=== PATIENT | male | born 1950 | race Caucasian/White ===

== ENCOUNTER 2022-01-12 07:55 | Observation (INO) | payer MEDICARE ==
[2022-01-11] MEDS: XARELTO PO SCH (12:00)
[~2022-01-12] VITALS: Ht 177.8 cm; Wt 108.9 kg
[2022-01-12 07:58] VITALS: BP 163/81
--- NOTE | 2022-01-12 08:17 | PCM.EKG ---
[facility] Test Date: 2022-01-12 Test Time: 08:07:46 Pat Name: ISELA ORTIZ Department: [id number] Room: 329 Gender: M Patient Care Assistant: CALDERON : 1950 Requested By: TAY RUBIN Order Number: [id number] Reading MD: Tay RUBIN Measurements Intervals [place] Rate: 51 P: 48 [place]: 59 QRS: -24 QRSD: 96 T: 64 QT: 516 QTc: 476 Interpretive Statements Sinus rhythm Short [place] interval Inferior infarct, old Baseline wander in lead(s) V2 No previous ECG available for comparison Electronically Signed On 01-14-2022 7:20:49 CDT by Tay RUBIN Please click the below link to view image of tracing.
--- NOTE | 2022-01-12 08:20 | ER.PDOC ---
General Chief Complaint: Nausea,Vomiting,Diarrhea Stated Complaint: NAUSEA/VOMITING Time seen by MD: 08:18 Source: patient Exam Limitations: no limitations History of Present Illness Initial Comments Nausea, vomiting and diarrhea for 4 days. No fever or chills. No abdominal pain. Patient has not been able to keep anything down for 4 days. 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 Severity/Quality: moderate Associated Symptoms (vomiting): freq vomitng Associated Symptoms (diarrhea): watery Allergies: Coded Allergies: No Known Allergies (Unverified , 01/12/22) Vital Signs First Vital Signs Date Time Temp Pulse Resp B/P (MAP) Pulse Ox O2 Delivery O2 Flow Rate FiO2 01/12/22 07:58 97.6 52 18 163/81 (108) 100 Room Air* 0 21 Last Vital Signs Date Time Temp Pulse Resp B/P (MAP) Pulse Ox O2 Delivery O2 Flow Rate FiO2 01/12/22 07:58 97.6 52 18 100 01/12/22 07:58 163/81 (108) Room Air* 0 21 Past Medical History Medical History: arrhythmia (A fib), diabetes, high cholesterol, hypertension Surgical History: appendectomy Family History Significant Family History: no pertinent family hx Social History Smoking: non-smoker Alcohol Use: none Drug Use: none Constitutional: no symptoms reported EENTM: no symptoms reported Respiratory: no symptoms reported Cardiovascular: no symptoms reported Gastrointestinal: see HPI All Other Systems: Reviewed and Negative Physical Exam General Appearance: No Apparent Distress, WD/WN HEENT: PERRL/EOMI, Normal ENT Inspection, TMs Normal, Pharynx Normal Neck: Non-Tender, Full Range of Motion, Supple, Normal Inspection Respiratory: chest non-tender, lungs clear, normal breath sounds, no respiratory distress, no accessory muscle use Cardiovascular: Normal Peripheral Pulses, Regular Rate, Rhythm, No Edema, No Gallop, No JVD, No Murmur, Bradycardia Gastrointestinal: Normal Bowel Sounds, Non Tender, Soft Back: Normal Inspection, No CVA Tenderness, No Vertebral Tenderness Extremities: Normal Range of Motion, Non-Tender, Normal Inspection, No Pedal Edema, No Calf Tenderness, Normal Capillary Refill, Pelvis Stable 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 NML as Tested, No Motor/Sensory Deficits, Alert, Normal Mood/Affect, Oriented x 3 Skin: Normal Color, Warm/Dry Lymphatic: No Adenopathy Results/Orders Results/Orders Orders - TAY RUBIN MD Cbc With Auto Diff (01/12/22 08:13) Comprehensive Metabolic Panel (01/12/22 08:13) Lipase (01/12/22 08:13) Urinalysis (01/12/22 08:13) Ekg-Routine (01/12/22 08:13) Covid19 Antigen Sofía Latrice (01/12/22 08:18) Vital Signs Date Time Temp Pulse Resp B/P (MAP) Pulse Ox O2 Delivery O2 Flow Rate FiO2 01/12/22 07:58 97.6 52 18 100 01/12/22 07:58 97.6 52 18 01/12/22 07:58 97.6 52 18 163/81 (108) 100 Room Air* 0 21 Laboratory Tests Test 01/12/22 08:18 01/12/22 08:25 01/12/22 09:02 White Blood Count 10.1 10^3/uL (4.5-11.0) Red Blood Count 4.61 10^6/uL (4.50-5.90) Hemoglobin 14.9 g/dL (13.9-16.3) Hematocrit 46.2 % (37.0-53.0) Mean Corpuscular Volume 100.2 fL (78-100) H Mean Corpuscular Hemoglobin 32.3 pg (26-34) Mean Corpuscular Hemoglobin Concent 32.3 g/dL (33-36.5) L Red Cell Distribution Width 13.6 % (11.5-14.5) Platelet Count 242 10^3/uL (150-400) Mean Platelet Volume 9.7 fL (7.8-11.0) Neutrophils (%) (Auto) 86.0 % (41.0-85.0) H Lymphocytes (%) (Auto) 7.2 % (24.0-44.0) L Monocytes (%) (Auto) 5.4 % (5.0-12.0) Neutrophils # (Auto) 8.7 10^3/uL (1.8-7.7) H Lymphocytes # (Auto) 0.73 10^3/uL1 (1.0-4.8) L Monocytes # (Auto) 0.6 10^3/uL (0.3-0.8) Absolute Immature Granulocyte (auto 0.02 10^3 u/L (0-2) Absolute Eosinophils (auto) 0.1 10^3/uL (0.0-0.2) Immature Granulocytes % 0.20 % (0.00-0.50) Eosinophils % 0.8 % (0.0-5.0) Basophils % 0.4 % (0.0-0.2) H Basophils # 0.0 10^3/uL (0.0-0.1) Sodium Level 143 mmol/L (132-145) Potassium Level 3.9 mmol/L (3.6-5.2) Chloride Level 110.0 mmol/L (96-109) H Carbon Dioxide Level 21.7 mmol/L (20.0-32) Anion Gap 15.2 Blood Urea Nitrogen 19 mg/dL (7-18) H Creatinine 1.56 mg/dL (0.59-1.40) H Estimated GFR () 53.2 (>/=60) Est GFR (CKD-EPI)(Non-Afr Israeli) 44.0 (>/=60) BUN/Creatinine Ratio 12.0 Glucose Level 115 mg/dL (70-110) H Calcium Level 8.5 mg/dL (8.4-10.5) Total Bilirubin 0.5 mg/dL (0.2-1.0) Aspartate Amino Transferase (AST) 22 U/L (0-35) Alanine Aminotransferase (ALT) 51 U/L (12-78) Alkaline Phosphatase 71 U/L (50-136) Total Protein 6.5 g/dL (6.4-8.2) Albumin 3.9 g/dL (3.4-5.0) Globulin 2.6 Albumin/Globulin Ratio 1.500 Lipase 47 U/L (114-286) L SARS-CoV-2 Antigen (Rapid) NEGATIVE (NEGATIVE) Urine Collection Type UNKNOWN Urine Color YELLOW Urine Appearance CLEAR Urine Bilirubin NEGATIVE (NEGATIVE) Urine Ketones NEGATIVE (NEGATIVE) Urine Specific [place] 1.010 (1.005-1.030) Urine pH 5.0 (4.5-8.0) Urine Protein NEGATIVE (NEGATIVE) Urine Urobilinogen 0.2 E.U./dL (0.2) Urine Nitrate NEGATIVE (NEGATIVE) Urine Leukocyte Esterase NEGATIVE (NEGATIVE) Urine Glucose (Auto)(UA) NEGATIVE (NEGATIVE) Urine Blood NEGATIVE (NEGATIVE) Progress Progress Patient received a liter of NS. 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 EKG/XRAY/CT/US EKG: NSR EKG Comments: HR 51, normal P axis ER DEPART Departure Time of Disposition: 09:38 Disposition: 01 HOME / SELF CARE / HOMELESS Impression: Primary Impression: Gastroenteritis Additional Impressions: Acute renal failure Dehydration Condition: Improved Comments Admitted to Dr. Alexander Duration or Time Spent with Pa: 30 min Problem Qualifiers Additional Impressions: Acute renal failure Acute renal failure type: unspecified Qualified Codes: N17.9 - Acute kidney failure, unspecified TAY RUBIN MD Jan 12, 2022 08:20
[2022-01-12 08:29] LABS: BASOPHIL % 0.4 % (0.0-0.2); EOSINOPHIL # 0.1 10^3/uL (0.0-0.2); EOSINOPHIL % 0.8 % (0.0-5.0); LYMPHOCYTES # 0.73 10^3/uL1 (1.0-4.8); LYMPHOCYTES % 7.2 % (24.0-44.0); MEAN CORP HGB 32.3 pg (26-34); MONOCYTES # 0.6 10^3/uL (0.3-0.8); MONOCYTES % 5.4 % (5.0-12.0); NEUTROPHIL # 8.7 10^3/uL (1.8-7.7); RED CELL DISTRIBUTION WIDTH 13.6 % (11.5-14.5)
[2022-01-12 08:43] LABS: CARBON DIOXIDE 21.7 mmol/L (20.0-32)
[2022-01-12] MEDS: XARELTO PO SCH (09:00)
[2022-01-12 09:17] LABS: BILIRUBIN,URINE NEGATIVE (NEGATIVE); UROBILINOGEN,URINE 0.2 E.U./dL (0.2)
[2022-01-12] MEDS ORDERED: HNS 1000ML/KCL 20MEQ 1,000 ML IV STA (09:41)
[2022-01-12] MEDS ORDERED: RIVA20TA PO (09:45)
[2022-01-12] MEDS ORDERED: OMEP20CA19 PO (09:45)
[2022-01-12] MEDS ORDERED: ALLO300T PO (09:45)
[2022-01-12] MEDS ORDERED: LISI5TAB18 PO (09:45)
[2022-01-12] MEDS ORDERED: METF500T17 PO (09:45)
[2022-01-12] MEDS ORDERED: INSU100I28 SQ (09:45)
[2022-01-12] MEDS ORDERED: METO100T7 PO (09:45)
[2022-01-12] MEDS ORDERED: ATOR40TA PO (09:45)
[2022-01-12] MEDS ORDERED: HNS 1000ML/KCL 20MEQ 1,000 ML ONE (09:48)
--- NOTE | 2022-01-12 10:13 | NUR ---
REPORT CALLED REPORT TO MARILEE GLORIA. PT TAKEN VIA IN STABLE CONDITION.
[2022-01-12 11:23] VITALS: BP 153/69
[2022-01-12] MEDS ORDERED: D5W-1/2NS 1000ML 1,000 ML IV SCH (11:30)
[2022-01-12] MEDS ORDERED: ZOFRAN IV PRN (11:30)
[2022-01-12] MEDS ORDERED: TYLENOL PO PRN (11:30)
--- NOTE | 2022-01-12 11:57 | PCM.HP ---
History of Present Illness Reason for Visit: Nausea vomiting and diarrhea History of Present Illness 71-year-old male with history of diabetes mellitus, hypertension, atrial fibrillation on Xarelto Presented to emergency room with Nausea, vomiting and diarrhea for 4 days. No fever or chills. No abdominal pain. Patient has not been able to keep anything down for 4 days. 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 Work-up in the emergency room patient appears dehydrated. Abdomen is soft. Lab work showed elevated creatinine 1.56. Unknown baseline. Patient placed on IV fluids. Patient is being admitted hospital for further management. Past Medical History Cardiac: AFIB, HTN Endocrine: Diabetes Past Surgical History: No pertinent hx Past Social History Alcohol: social Review of Systems Constitutional: Weakness Gastrointestinal: Nausea, Vomiting, Diarrhea Other Review of other 14 systems negative except as mentioned above in history present illness Allergies: Coded Allergies: No Known Allergies (Unverified , 01/12/22) Scheduled Allopurinol (Allopurinol), 1 TAB PO DAILY, (Reported) Atorvastatin 40MG (Lipitor 40MG), 1 TAB PO HS, (Reported) Insulin Detemir (Levemir Flextouch), 100 UNIT SQ DAILY24, (Reported) Lisinopril (Lisinopril), 1 TAB PO BID, (Reported) Metformin Hcl (Metformin Hcl), 1 TAB PO BID, (Reported) Metoprolol Tartrate (Lopresser 100MG), 50 MG PO BID, (Reported) Omeprazole (Omeprazole), 1 CAP PO DAILY, (Reported) Rivaroxaban (Xarelto), 1 TAB PO QD, (Reported) VTE VTE Present on Admission: Yes Currently receiving anticoagul: Yes VTE Risk Total Score: 2 Exam Vital Signs Vital Signs Date Time Temp Pulse Resp B/P (MAP) Pulse Ox O2 Delivery O2 Flow Rate FiO2 01/12/22 11:23 97.9 50 18 153/69 (97) 98 Room Air* 0 21 General Appearance: Alert, Oriented X3, mild distress HEENT: Atraumatic, Other (Dry mucous membrane) Respiratory: Clear to auscultation, Normal air movement Cardiovascular: Regular rate, Normal S1, Normal S2 Abdominal: Normal bowel sounds, No tenderness Extremities: No clubbing, No cyanosis Skin: No lesions Neuro: Normal speech, Normal tone Psych/Mental Status: Mental status NL, Mood NL Assessment/Plan Assessment/Plan Assessment/Plan 71-year-old male with history of diabetes mellitus, hypertension, atrial fibrill ation on Xarelto Presented to emergency room with Nausea, vomiting and diarrhea for 4 days. No fever or chills. No abdominal pain. Patient has not been able to keep anything down for 4 days. 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 Work-up in the emergency room patient appears dehydrated. Abdomen is soft. Lab work showed elevated creatinine 1.56. Unknown baseline. Patient placed on IV fluids. Patient is being admitted hospital for further management. Plan Admit IV fluids Monitor kidney function urine output Monitor and correct electrolytes Symptomatic management Review and continue home meds SSI GI prophylaxis pantoprazole DVT prophylaxis Continue home anticoagulant Expect length of stay 1 midnight patient stable and able to tolerate p.o. Problems: (1) Acute kidney injury ICD Code: N17.9 - Acute kidney failure, unspecified SNOMED: 0222296, 16939390 (2) Gastroenteritis Status: Acute ICD Code: K52.9 - Noninfective gastroenteritis and colitis, unspecified SNOMED: 65532669 (3) Diabetes mellitus ICD Code: E11.9 - Type 2 diabetes mellitus without complications SNOMED: 42720897 (4) History of atrial fibrillation ICD Code: Z86.79 - Personal history of other diseases of the circulatory system SNOMED: 113669474 (5) Dehydration Status: Acute ICD Code: E86.0 - Dehydration SNOMED: 24770504 GEOVANNI PFEIFFER MD Jan 12, 2022 11:57
[2022-01-12] MEDS ORDERED: DEXTROSE 50%-WATER SYRINGE IV PRN (12:00)
[2022-01-12] MEDS ORDERED: D5W 1000ML 1,000 ML IV PRN (12:00)
[2022-01-12 16:20] VITALS: BP 156/74
[2022-01-12] MEDS: HUMALOG SQ SCH ×2 (17:30→21:00)
[2022-01-12] MEDS: LACTATED RINGERS 1,000 ML IV SCH ×2 (18:28→22:00)
[2022-01-12 19:40] VITALS: BP 140/66
[2022-01-12] MEDS: LANTUS SQ SCH (21:15)
[2022-01-12] MEDS: LOPRESSOR PO SCH (21:16)
[2022-01-12] MEDS: LIPITOR PO SCH (21:16)
[2022-01-13 00:41] VITALS: BP 144/75
[2022-01-13 04:55] VITALS: BP 148/68
[2022-01-13 05:43] LABS: BASOPHIL % 0.7 % (0.0-0.2); EOSINOPHIL # 0.1 10^3/uL (0.0-0.2); EOSINOPHIL % 2.4 % (0.0-5.0); LYMPHOCYTES # 1.55 10^3/uL1 (1.0-4.8); LYMPHOCYTES % 26.8 % (24.0-44.0); MEAN CORP HGB 33.1 pg (26-34); MONOCYTES # 0.6 10^3/uL (0.3-0.8); MONOCYTES % 10.5 % (5.0-12.0); NEUTROPHIL # 3.4 10^3/uL (1.8-7.7); NEUTROPHILS % 59.4 % (41.0-85.0); PLATELET COUNT 203 10^3/uL (150-400); RED CELL DISTRIBUTION WIDTH 13.6 % (11.5-14.5)
[2022-01-13 05:57] LABS: CARBON DIOXIDE 23.1 mmol/L (20.0-32)
[2022-01-13] MEDS: HUMALOG SQ SCH ×4 (07:30→21:14)
[2022-01-13 08:00] VITALS: BP 156/82
[2022-01-13] MEDS: LACTATED RINGERS 1,000 ML IV SCH ×2 (08:00→15:16)
[2022-01-13] MEDS: LOPRESSOR PO SCH ×3 (09:00→21:00)
[2022-01-13] MEDS: ZYLOPRIM PO SCH (09:48)
[2022-01-13] MEDS: PROTONIX PO SCH (09:49)
[2022-01-13] MEDS: XARELTO PO SCH (09:49)
[2022-01-13 12:00] VITALS: BP 160/74
--- NOTE | 2022-01-13 12:42 | PRM.PN ---
Subjective Subjective Date: Jan 13, 2022 Time: 10:00 Subjective Doing better. His diarrhea has improved but still leaks stools and 2 stool stains seen on the bed. No vomiting, has slight nausea. Afebrile. Hungry for food. Creatinine has improved to 1.21 from 1.56.. K is 3.4. 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 Events Since Last Encounter as above. Improving on IVF. Requests to advance diet. VTE VTE Risk assessment No VTE C/I VTE Risk Total Score: 2 VTE Risk Score VTE Risk: Score 0-1 = Low Risk (Aggressive mobilization; early ambulation; no VTE prophylaxis required) Score 2: Moderate Risk (Intermittent/Pneumatic Compression Device OR Lovenox/Heparin/Coumadin) Score 3-4: High Risk (Intermittent/Pneumatic Compression Device AND Lovenox/Heparin/Coumadin) Score > or =5: Highest Risk (Intermittent/Pneumatic Compression Device AND Lovenox/Heparin/Coumadin) Review of Systems Constitutional: Weakness Gastrointestinal: Nausea, Vomiting, Abdominal Pain, Diarrhea, Constipation, Melena, Hematochezia, Other Allergies: Coded Allergies: No Known Allergies (Unverified , 01/12/22) Scheduled Allopurinol (Allopurinol), 1 TAB PO DAILY, (Reported) Atorvastatin 40MG (Lipitor 40MG), 1 TAB PO HS, (Reported) Insulin Detemir (Levemir Flextouch), 100 UNIT SQ DAILY24, (Reported) Lisinopril (Lisinopril), 1 TAB PO BID, (Reported) Metformin Hcl (Metformin Hcl), 1 TAB PO BID, (Reported) Metoprolol Tartrate (Lopresser 100MG), 50 MG PO BID, (Reported) Omeprazole (Omeprazole), 1 CAP PO DAILY, (Reported) Rivaroxaban (Xarelto), 1 TAB PO QD, (Reported) Objective Vitals and I/O Vital Sign - Last 24 Hours 01/12/22 01/12/22 01/12/22 01/12/22 16:20 16:22 16:55 19:40 Temp 98.2 97.6 Pulse 48 49 Resp 17 18 B/P (MAP) 156/74 (101) 140/66 (90) Pulse Ox 99 99 O2 Delivery Room Air* Room Air Room Air Room Air* O2 Flow Rate 0 0 FiO2 21 01/12/22 01/13/22 01/13/22 01/13/22 19:46 00:41 04:55 08:00 Temp 98.1 97.9 97.7 Pulse 50 50 50 Resp 18 16 16 B/P (MAP) 144/75 (98) 148/68 (94) 156/82 (106) Pulse Ox 97 96 98 O2 Delivery Room Air Room Air* Room Air* Room Air* O2 Flow Rate 0.00 0 0 0 FiO2 21 01/13/22 01/13/22 11:33 12:00 Temp 98.1 Pulse 51 Resp 16 B/P (MAP) 160/74 (102) Pulse Ox 98 O2 Delivery Room Air Room Air* O2 Flow Rate 0.00 0 FiO2 21 General: Alert, Oriented X3, mild distress HEENT: Atraumatic, Other (Dry mucous membrane) Lungs: Clear to auscultation, Normal air movement Heart: Regular rate, Normal S1, Normal S2 Abdomen: Normal bowel sounds, No tenderness Extremities: No clubbing, No cyanosis Neuro: Normal speech, Normal tone Psych/Mental Status: Mental status NL, Mood NL All Results(Lab/Rad) Laboratory Tests Test 01/12/22 20:58 01/13/22 05:15 Bedside Glucose 127 White Blood Count 5.8 10^3/uL Red Blood Count 4.02 10^6/uL Hemoglobin 13.3 g/dL Hematocrit 40.1 % Mean Corpuscular Volume 99.8 fL Mean Corpuscular Hemoglobin 33.1 pg Mean Corpuscular Hemoglobin Concent 33.2 g/dL Red Cell Distribution Width 13.6 % Platelet Count 203 10^3/uL Mean Platelet Volume 10.0 fL Neutrophils (%) (Auto) 59.4 % Lymphocytes (%) (Auto) 26.8 % Monocytes (%) (Auto) 10.5 % Neutrophils # (Auto) 3.4 10^3/uL Lymphocytes # (Auto) 1.55 10^3/uL1 Monocytes # (Auto) 0.6 10^3/uL Absolute Immature Granulocyte (auto 0.01 10^3 u/L Absolute Eosinophils (auto) 0.1 10^3/uL Immature Granulocytes % 0.20 % Eosinophils % 2.4 % Basophils % 0.7 % Basophils # 0.0 10^3/uL Sodium Level 144 mmol/L Potassium Level 3.4 mmol/L Chloride Level 111.0 mmol/L Carbon Dioxide Level 23.1 mmol/L Glucose Level 96 mg/dL Blood Urea Nitrogen 11 mg/dL Creatinine 1.21 mg/dL Calcium Level 8.4 mg/dL Anion Gap 13.3 Estimated GFR () 71.3 Est GFR (CKD-EPI)(Non-Afr Syrian) 58.9 BUN/Creatinine Ratio 9.0 Current Medications Medications (Trade) Dose Ordered Sig/Timothy Route PRN Reason Start Time Stop Time Status Last Admin Dose Admin Potassium Chloride/Sodium Chloride 1,000 ml @ 100 mls/hr Q10H STAT IV 01/12/22 09:41 01/12/22 19:40 DC 01/12/22 09:55 Potassium Chloride/Sodium Chloride 1,000 ml @ ud STK-MED ONCE .ROUTE 01/12/22 09:48 01/12/22 09:48 DC Acetaminophen (Tylenol) 1,000 mg Q6H PRN PO PAIN 1 - 3 01/12/22 11:30 02/11/22 11:29 Pantoprazole Sodium (Protonix) 40 mg DAILY PO 01/13/22 09:00 02/12/22 08:59 01/13/22 09:49 Ondansetron HCl (Zofran) 4 mg Q4H PRN IV NAUSEA / VOMITING 01/12/22 11:30 02/11/22 11:29 Allopurinol (Zyloprim) 300 mg DAILY PO 01/13/22 09:00 02/12/22 08:59 01/13/22 09:48 Atorvastatin Calcium (Lipitor) 40 mg HS PO 01/12/22 21:00 02/11/22 20:59 01/12/22 21:16 Metoprolol Tartrate (Lopressor) 50 mg BID PO 01/12/22 21:00 02/11/22 20:59 01/12/22 21:16 Rivaroxaban (Xarelto) 20 mg DAILY PO 01/11/22 12:00 02/10/22 11:59 01/13/22 09:49 Insulin Glargine (Lantus) 10 unit HS SQ 01/12/22 21:00 02/11/22 20:59 01/12/22 21:15 Insulin Human Lispro (Humalog) 0-140 0 Units 141-200... ACHS SQ 01/12/22 17:30 02/11/22 17:29 Dextrose 1,000 ml @ 100 mls/hr Q10H PRN IV HYPOGLYCEMIA 01/12/22 12:00 02/11/22 11:59 Dextrose (Dextrose 50%-Water Syringe) 25 ml PRN PRN IV HYPOGLYCEMIA 01/12/22 12:00 02/11/22 11:59 Course Sepsis Screening Results: Posi: NEGATIVE Sepsis Qualifier/Stage: NO DEFINITE RISK Duration or Total Time Spent w: 30 min Vitals & review Data Vital Sign - Last 24 Hours 01/12/22 01/12/22 01/12/22 01/12/22 16:20 16:22 16:55 19:40 Temp 98.2 97.6 Pulse 48 49 Resp 17 18 B/P (MAP) 156/74 (101) 140/66 (90) Pulse Ox 99 99 O2 Delivery Room Air* Room Air Room Air Room Air* O2 Flow Rate 0 0 FiO2 21 01/12/22 01/13/22 01/13/22 01/13/22 19:46 00:41 04:55 08:00 Temp 98.1 97.9 97.7 Pulse 50 50 50 Resp 18 16 16 B/P (MAP) 144/75 (98) 148/68 (94) 156/82 (106) Pulse Ox 97 96 98 O2 Delivery Room Air Room Air* Room Air* Room Air* O2 Flow Rate 0.00 0 0 0 FiO2 21 01/13/22 01/13/22 11:33 12:00 Temp 98.1 Pulse 51 Resp 16 B/P (MAP) 160/74 (102) Pulse Ox 98 O2 Delivery Room Air Room Air* O2 Flow Rate 0.00 0 FiO2 21 Laboratory Tests Test 01/12/22 08:18 01/12/22 08:25 01/12/22 09:02 01/12/22 12:06 White Blood Count 10.1 10^3/uL Red Blood Count 4.61 10^6/uL Hemoglobin 14.9 g/dL Hematocrit 46.2 % Mean Corpuscular Volume 100.2 fL Mean Corpuscular Hemoglobin 32.3 pg Mean Corpuscular Hemoglobin Concent 32.3 g/dL Red Cell Distribution Width 13.6 % Platelet Count 242 10^3/uL Mean Platelet Volume 9.7 fL Neutrophils (%) (Auto) 86.0 % Lymphocytes (%) (Auto) 7.2 % Monocytes (%) (Auto) 5.4 % Neutrophils # (Auto) 8.7 10^3/uL Lymphocytes # (Auto) 0.73 10^3/uL1 Monocytes # (Auto) 0.6 10^3/uL Absolute Immature Granulocyte (auto 0.02 10^3 u/L Absolute Eosinophils (auto) 0.1 10^3/uL Immature Granulocytes % 0.20 % Eosinophils % 0.8 % Basophils % 0.4 % Basophils # 0.0 10^3/uL Sodium Level 143 mmol/L Potassium Level 3.9 mmol/L Chloride Level 110.0 mmol/L Carbon Dioxide Level 21.7 mmol/L Anion Gap 15.2 Blood Urea Nitrogen 19 mg/dL Creatinine 1.56 mg/dL Estimated GFR () 53.2 Est GFR (CKD-EPI)(Non-Afr Syrian) 44.0 BUN/Creatinine Ratio 12.0 Glucose Level 115 mg/dL Calcium Level 8.5 mg/dL Total Bilirubin 0.5 mg/dL Aspartate Amino Transf (AST/SGOT) 22 U/L Alanine Aminotransferase (ALT/SGPT) 51 U/L Alkaline Phosphatase 71 U/L Total Protein 6.5 g/dL Albumin 3.9 g/dL Globulin 2.6 Albumin/Globulin Ratio 1.500 Lipase 47 U/L SARS-CoV-2 Antigen (Rapid) NEGATIVE Urine Collection Type UNKNOWN Urine Color YELLOW Urine Appearance CLEAR Urine Bilirubin NEGATIVE Urine Ketones NEGATIVE Urine Specific [place] 1.010 Urine pH 5.0 Urine Protein NEGATIVE Urine Urobilinogen 0.2 E.U./dL Urine Nitrate NEGATIVE Urine Leukocyte Esterase NEGATIVE Urine Glucose (Auto)(UA) NEGATIVE Urine Blood NEGATIVE Bedside Glucose 73 Test 01/12/22 20:58 01/13/22 05:15 Bedside Glucose 127 White Blood Count 5.8 10^3/uL Red Blood Count 4.02 10^6/uL Hemoglobin 13.3 g/dL Hematocrit 40.1 % Mean Corpuscular Volume 99.8 fL Mean Corpuscular Hemoglobin 33.1 pg Mean Corpuscular Hemoglobin Concent 33.2 g/dL Red Cell Distribution Width 13.6 % Platelet Count 203 10^3/uL Mean Platelet Volume 10.0 fL Neutrophils (%) (Auto) 59.4 % Lymphocytes (%) (Auto) 26.8 % Monocytes (%) (Auto) 10.5 % Neutrophils # (Auto) 3.4 10^3/uL Lymphocytes # (Auto) 1.55 10^3/uL1 Monocytes # (Auto) 0.6 10^3/uL Absolute Immature Granulocyte (auto 0.01 10^3 u/L Absolute Eosinophils (auto) 0.1 10^3/uL Immature Granulocytes % 0.20 % Eosinophils % 2.4 % Basophils % 0.7 % Basophils # 0.0 10^3/uL Sodium Level 144 mmol/L Potassium Level 3.4 mmol/L Chloride Level 111.0 mmol/L Carbon Dioxide Level 23.1 mmol/L Glucose Level 96 mg/dL Blood Urea Nitrogen 11 mg/dL Creatinine 1.21 mg/dL Calcium Level 8.4 mg/dL Anion Gap 13.3 Estimated GFR () 71.3 Est GFR (CKD-EPI)(Non-Afr Syrian) 58.9 BUN/Creatinine Ratio 9.0 Current Medications Medications (Trade) Dose Ordered Sig/Timothy PRN Reason Start Time Stop Time Status Last Admin Acetaminophen (Tylenol) 1,000 mg Q6H PRN PAIN 1 - 3 01/12/22 11:30 02/11/22 11:29 Allopurinol (Zyloprim) 300 mg DAILY 01/13/22 09:00 02/12/22 08:59 01/13/22 09:48 Atorvastatin Calcium (Lipitor) 40 mg HS 01/12/22 21:00 02/11/22 20:59 01/12/22 21:16 Dextrose 1,000 ml @ 100 mls/hr Q10H PRN HYPOGLYCEMIA 01/12/22 12:00 02/11/22 11:59 Dextrose (Dextrose 50%-Water Syringe) 25 ml PRN PRN HYPOGLYCEMIA 01/12/22 12:00 02/11/22 11:59 Insulin Glargine (Lantus) 10 unit HS 01/12/22 21:00 02/11/22 20:59 01/12/22 21:15 Insulin Human Lispro (Humalog) 0-140 0 Units 141-200... ACHS 01/12/22 17:30 02/11/22 17:29 Metoprolol Tartrate (Lopressor) 50 mg BID 01/12/22 21:00 02/11/22 20:59 01/12/22 21:16 Ondansetron HCl (Zofran) 4 mg Q4H PRN NAUSEA / VOMITING 01/12/22 11:30 02/11/22 11:29 Pantoprazole Sodium (Protonix) 40 mg DAILY 01/13/22 09:00 02/12/22 08:59 01/13/22 09:49 Rivaroxaban (Xarelto) 20 mg DAILY 01/11/22 12:00 02/10/22 11:59 01/13/22 09:49 LEVEL 1 SEPSIS INFECTION CRITE: None/Not assessed LEVEL 2-SIRS (LIST ALL THAT AP: None/Not assessed Cardiovascular Evidence: Not Assessed or None Hematologic Evidence: None/Not assessed Hepatic Evidence: None/Not assessed Metabolic Evidence: None/Not assessed Neurological Evidence: None/Not assessed Respiratory Evidence: None/Not assessed Renal Evidence: None/Not assessed O2 Sat by Pulse Oximetry: 98 Oxygen Flow Rate: 0.00 Assessment/Plan Assessment/Plan Assessment/Plan 71-year-old male with history of diabetes mellitus, hypertension, atrial fibrillation on Xarelto Presented to emergency room with Nausea, vomiting and diarrhea for 4 days. No fever or chills. No abdominal pain. Patient has not been able to keep anything down for 4 days. 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 Abdomen is soft. Lab work showed elevated creatinine 1.56. Unknown baseline. Patient placed on IV fluids. Patient is being admitted hospital for further management. Plan Advance diet and continue IVF. Monitor kidney function and urine output Monitor and correct electrolytes Symptomatic management Review and continue home meds SSI GI prophylaxis pantoprazole DVT prophylaxis Continue home anticoagulant Expect length of stay 1 midnight patient stable and able to tolerate p.o. ARUNA GARSIA MD Jan 13, 2022 12:42
[2022-01-13 16:00] VITALS: BP 179/81
[2022-01-13 20:55] VITALS: BP 154/76
[2022-01-13] MEDS: LIPITOR PO SCH (21:00)
[2022-01-13] MEDS: LANTUS SQ SCH (21:11)
[2022-01-14] VITALS: BP 124/69
[2022-01-14] MEDS: LACTATED RINGERS 1,000 ML IV SCH ×2 (03:55→12:03)
[2022-01-14 05:15] LABS: MEAN CORP HGB 32.7 pg (26-34); RED CELL DISTRIBUTION WIDTH 13.6 % (11.5-14.5)
[2022-01-14 05:18] VITALS: BP 143/93
[2022-01-14 05:36] LABS: CARBON DIOXIDE 27.9 mmol/L (20.0-32)
[2022-01-14] MEDS: HUMALOG SQ SCH ×2 (06:35→11:30)
[2022-01-14] MEDS: PROTONIX PO SCH (08:23)
[2022-01-14] MEDS: ZYLOPRIM PO SCH (08:23)
[2022-01-14] MEDS: LOPRESSOR PO SCH (08:24)
[2022-01-14] MEDS: XARELTO PO SCH (08:24)
--- NOTE | 2022-01-14 09:51 | NUR ---
DISCHARGE PLAN - F/U APPT CATHERINE MOTA IN [facility] - 01/24/22@1120 [email or web address] AND VISITED WITH PATIENT ABOUT DISCHARGE PLANS AND NEEDS. PATIENT CURRENTLY [email or web address] WITH [facility]OUSE IN [place]. 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 PATIENT REPORTS THE COMPANY CAME AND GOT HIS LOAD AND HIS TRUCK IS ON [address]@THE REST STOP - ABOUT 30-45 MINUTES PER EMS. PATIENT VOICES UNSURE OF HOW TO GET BACK TO HIS TRUCK. CM INFORMED PATIENT THAT CM WOULD CHECK TO SEE IF [facility] VAN COULD TAKE PATIENT AND CM WOULD MAKE PATIENT A F/U APPT WITH HIS PCP AND IT WOULD BE IN PATIENTS DISCHARGE PAPERWORK. PATIENT SIGNS [facility] CHOICE LETTER FOR CHART OF THE SAME. CM SPOKE WITH JOHN AND PER [employer] REST STOP OFF OF [address] 37 MILES AND APPROVED FOR VAN TRANSPORT. CM NOTIFIED JUANI SIMON RN CHARGE NURSE OF F/U APPT AND VAN TRANSPORTATION APPROVED AND FOR MED SURG TO SET UP VAN TRANSPORT WHEN PATIENT DISCHARGED. Addendum: 01/15/22 at 1049 by Bonnie Lea RN,[employer] RN CM FAXED PATIENT'S CLINICALS TO DR CATHERINE MOTA@[phone]. PATIENT WITH F/U APPT 01/24/22@1120AM. FAX CONFIRMATION CONFIRMED COMPLETE.
[2022-01-14 10:03] VITALS: BP 146/92
[2022-01-14] MEDS ORDERED: POTA-148 PO (13:12)
[2022-01-14 13:20] VITALS: BP 143/93
--- NOTE | 2022-01-14 13:22 | PRM.DC ---
Discharge Summary Date of Discharge: Jan 14, 2022 Time of Request to Discharge: 13:14 Reason for Visit: Nausea vomiting and diarrhea Hospital Course Reason for Visit: Nausea vomiting and diarrhea History of Present Illness 71-year-old male with history of diabetes mellitus, hypertension, atrial fibrillation on Xarelto Presented to emergency room with Nausea, vomiting and diarrhea for 4 days. No fever or chills. No abdominal pain. Patient has not been able to keep anything down for 4 days. 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 Work-up in the emergency room patient appears dehydrated. Abdomen is soft. Lab work showed elevated creatinine 1.56. Unknown baseline. Patient placed on IV fluids. Patient is being admitted hospital for further management. Hospital course: This 21-year-old male was admitted with nausea vomiting and diarrhea. He was managed with IV fluid. Today he is feeling better and he states that his diarrhea has almost resolved. He denies any nausea or vomiting. Yesterday he was hungry for food and diet was progressed to his regular diet. He tolerated the diet well. Potassium was 3.4 today so prescription given for potassium chloride 20 mEq daily for 5 days. Follow-up with family physician in 5 to 10 days. CMP 5 days. Insulin detemir will be held for now. Hold metformin for now. Continue fingerstick glucose before meals and at bedtime. He should use sliding scale of short acting insulin. General: Alert, Oriented X3, Cooperative HEENT: PERRLA, EOMI Neck: Supple, No JVD Lungs: Clear to auscultation Heart: Normal S1, Normal S2 Abdomen: Normal bowel sounds, Soft Extremities: No cyanosis, No edema Neuro: Normal gait, Normal speech, Strength at 5/5 X4 ext Psych/Mental Status: Mental status NL Scheduled Allopurinol (Allopurinol), 1 TAB PO DAILY, (Reported) Atorvastatin 40MG (Lipitor 40MG), 1 TAB PO HS, (Reported) Lisinopril (Lisinopril), 1 TAB PO BID, (Reported) Metoprolol Tartrate (Lopresser 100MG), 50 MG PO BID, (Reported) Omeprazole (Omeprazole), 1 CAP PO DAILY, (Reported) Potassium Chloride (Potassium Chloride), 20 MEQ PO DAILY24 Rivaroxaban (Xarelto), 1 TAB PO QD, (Reported) Discontinued Medications Insulin Detemir (Levemir Flextouch), 100 UNIT SQ DAILY24, (Reported) Discontinued Reason: HOLD Metformin Hcl (Metformin Hcl), 1 TAB PO BID, (Reported) Discontinued Reason: HOLD Sepsis Evaluation @ Discharge Vital Sign - Last 24 Hours 01/12/22 01/12/22 01/12/22 01/12/22 16:20 16:22 16:55 19:40 Temp 98.2 97.6 Pulse 48 49 Resp 17 18 B/P (MAP) 156/74 (101) 140/66 (90) Pulse Ox 99 99 O2 Delivery Room Air* Room Air Room Air Room Air* O2 Flow Rate 0 0 FiO2 01/12/22 01/13/22 01/13/22 01/13/22 19:46 00:41 04:55 08:00 Temp 98.1 97.9 97.7 Pulse 50 50 50 Resp 18 16 16 B/P (MAP) 144/75 (98) 148/68 (94) 156/82 (106) Pulse Ox 97 96 98 O2 Delivery Room Air Room Air* Room Air* Room Air* O2 Flow Rate 0.00 0 0 0 FiO2 01/13/22 01/13/22 11:33 12:00 Temp 98.1 Pulse 51 Resp 16 B/P (MAP) 160/74 (102) Pulse Ox 98 O2 Delivery Room Air Room Air* O2 Flow Rate 0.00 0 FiO2 21 Laboratory Tests Test 01/12/22 08:18 01/12/22 08:25 01/12/22 09:02 01/12/22 12:06 White Blood Count 10.1 10^3/uL Red Blood Count 4.61 10^6/uL Hemoglobin 14.9 g/dL Hematocrit 46.2 % Mean Corpuscular Volume 100.2 fL Mean Corpuscular Hemoglobin 32.3 pg Mean Corpuscular Hemoglobin Concent 32.3 g/dL Red Cell Distribution Width 13.6 % Platelet Count 242 10^3/uL Mean Platelet Volume 9.7 fL Neutrophils (%) (Auto) 86.0 % Lymphocytes (%) (Auto) 7.2 % Monocytes (%) (Auto) 5.4 % Neutrophils # (Auto) 8.7 10^3/uL Lymphocytes # (Auto) 0.73 10^3/uL1 Monocytes # (Auto) 0.6 10^3/uL Absolute Immature Granulocyte (auto 0.02 10^3 u/L Absolute Eosinophils (auto) 0.1 10^3/uL Immature Granulocytes % 0.20 % Eosinophils % 0.8 % Basophils % 0.4 % Basophils # 0.0 10^3/uL Sodium Level 143 mmol/L Potassium Level 3.9 mmol/L Chloride Level 110.0 mmol/L Carbon Dioxide Level 21.7 mmol/L Anion Gap 15.2 Blood Urea Nitrogen 19 mg/dL Creatinine 1.56 mg/dL Estimated GFR () 53.2 Est GFR (CKD-EPI)(Non-Afr [place]) 44.0 BUN/Creatinine Ratio 12.0 Glucose Level 115 mg/dL Calcium Level 8.5 mg/dL Total Bilirubin 0.5 mg/dL Aspartate Amino Transf (AST/SGOT) 22 U/L Alanine Aminotransferase (ALT/SGPT) 51 U/L Alkaline Phosphatase 71 U/L Total Protein 6.5 g/dL Albumin 3.9 g/dL Globulin 2.6 Albumin/Globulin Ratio 1.500 Lipase 47 U/L SARS-CoV-2 Antigen (Rapid) NEGATIVE Urine Collection Type UNKNOWN Urine Color YELLOW Urine Appearance CLEAR Urine Bilirubin NEGATIVE Urine Ketones NEGATIVE Urine Specific [place] 1.010 Urine pH 5.0 Urine Protein NEGATIVE Urine Urobilinogen 0.2 E.U./dL Urine Nitrate NEGATIVE Urine Leukocyte Esterase NEGATIVE Urine Glucose (Auto)(UA) NEGATIVE Urine Blood NEGATIVE Bedside Glucose 73 Test 01/12/22 20:58 01/13/22 05:15 Bedside Glucose 127 White Blood Count 5.8 10^3/uL Red Blood Count 4.02 10^6/uL Hemoglobin 13.3 g/dL Hematocrit 40.1 % Mean Corpuscular Volume 99.8 fL Mean Corpuscular Hemoglobin 33.1 pg Mean Corpuscular Hemoglobin Concent 33.2 g/dL Red Cell Distribution Width 13.6 % Platelet Count 203 10^3/uL Mean Platelet Volume 10.0 fL Neutrophils (%) (Auto) 59.4 % Lymphocytes (%) (Auto) 26.8 % Monocytes (%) (Auto) 10.5 % Neutrophils # (Auto) 3.4 10^3/uL Lymphocytes # (Auto) 1.55 10^3/uL1 Monocytes # (Auto) 0.6 10^3/uL Absolute Immature Granulocyte (auto 0.01 10^3 u/L Absolute Eosinophils (auto) 0.1 10^3/uL Immature Granulocytes % 0.20 % Eosinophils % 2.4 % Basophils % 0.7 % Basophils # 0.0 10^3/uL Sodium Level 144 mmol/L Potassium Level 3.4 mmol/L Chloride Level 111.0 mmol/L Carbon Dioxide Level 23.1 mmol/L Glucose Level 96 mg/dL Blood Urea Nitrogen 11 mg/dL Creatinine 1.21 mg/dL Calcium Level 8.4 mg/dL Anion Gap 13.3 Estimated GFR () 71.3 Est GFR (CKD-EPI)(Non-Afr [place]) 58.9 BUN/Creatinine Ratio 9.0 Current Medications Medications (Trade) Dose Ordered Sig/Timothy PRN Reason Start Time Stop Time Status Last Admin Acetaminophen (Tylenol) 1,000 mg Q6H PRN PAIN 1 - 3 01/12/22 11:30 02/11/22 11:29 Allopurinol (Zyloprim) 300 mg DAILY 01/13/22 09:00 02/12/22 08:59 01/13/22 09:48 Atorvastatin Calcium (Lipitor) 40 mg HS 01/12/22 21:00 02/11/22 20:59 01/12/22 21:16 Dextrose 1,000 ml @ 100 mls/hr Q10H PRN HYPOGLYCEMIA 01/12/22 12:00 02/11/22 11:59 Dextrose (Dextrose 50%-Water Syringe) 25 ml PRN PRN HYPOGLYCEMIA 01/12/22 12:00 02/11/22 11:59 Insulin Glargine (Lantus) 10 unit HS 01/12/22 21:00 02/11/22 20:59 01/12/22 21:15 Insulin Human Lispro (Humalog) 0-140 0 Units 141-200... ACHS 01/12/22 17:30 02/11/22 17:29 Metoprolol Tartrate (Lopressor) 50 mg BID 01/12/22 21:00 02/11/22 20:59 01/12/22 21:16 Ondansetron HCl (Zofran) 4 mg Q4H PRN NAUSEA / VOMITING 01/12/22 11:30 02/11/22 11:29 Pantoprazole Sodium (Protonix) 40 mg DAILY 01/13/22 09:00 02/12/22 08:59 01/13/22 09:49 Rivaroxaban (Xarelto) 20 mg DAILY 01/11/22 12:00 02/10/22 11:59 01/13/22 09:49 Course Sepsis Screening Results: Posi: NEGATIVE Sepsis Qualifier/Stage: NO DEFINITE RISK Duration or Total Time Spent w: 30 min Vitals & review Data Vital Sign - Last 24 Hours 01/12/22 01/12/22 01/12/22 01/12/22 16:20 16:22 16:55 19:40 Temp 98.2 97.6 Pulse 48 49 Resp 17 18 B/P (MAP) 156/74 (101) 140/66 (90) Pulse Ox 99 99 O2 Delivery Room Air* Room Air Room Air Room Air* O2 Flow Rate 0 0 FiO2 01/12/22 01/13/22 01/13/22 01/13/22 19:46 00:41 04:55 08:00 Temp 98.1 97.9 97.7 Pulse 50 50 50 Resp 18 16 16 B/P (MAP) 144/75 (98) 148/68 (94) 156/82 (106) Pulse Ox 97 96 98 O2 Delivery Room Air Room Air* Room Air* Room Air* O2 Flow Rate 0.00 0 0 0 FiO2 01/13/22 01/13/22 11:33 12:00 Temp 98.1 Pulse 51 Resp 16 B/P (MAP) 160/74 (102) Pulse Ox 98 O2 Delivery Room Air Room Air* O2 Flow Rate 0.00 0 FiO2 21 Laboratory Tests Test 01/12/22 08:18 01/12/22 08:25 01/12/22 09:02 01/12/22 12:06 White Blood Count 10.1 10^3/uL Red Blood Count 4.61 10^6/uL Hemoglobin 14.9 g/dL Hematocrit 46.2 % Mean Corpuscular Volume 100.2 fL Mean Corpuscular Hemoglobin 32.3 pg Mean Corpuscular Hemoglobin Concent 32.3 g/dL Red Cell Distribution Width 13.6 % Platelet Count 242 10^3/uL Mean Platelet Volume 9.7 fL Neutrophils (%) (Auto) 86.0 % Lymphocytes (%) (Auto) 7.2 % Monocytes (%) (Auto) 5.4 % Neutrophils # (Auto) 8.7 10^3/uL Lymphocytes # (Auto) 0.73 10^3/uL1 Monocytes # (Auto) 0.6 10^3/uL Absolute Immature Granulocyte (auto 0.02 10^3 u/L Absolute Eosinophils (auto) 0.1 10^3/uL Immature Granulocytes % 0.20 % Eosinophils % 0.8 % Basophils % 0.4 % Basophils # 0.0 10^3/uL Sodium Level 143 mmol/L Potassium Level 3.9 mmol/L Chloride Level 110.0 mmol/L Carbon Dioxide Level 21.7 mmol/L Anion Gap 15.2 Blood Urea Nitrogen 19 mg/dL Creatinine 1.56 mg/dL Estimated GFR () 53.2 Est GFR (CKD-EPI)(Non-Afr [place]) 44.0 BUN/Creatinine Ratio 12.0 Glucose Level 115 mg/dL Calcium Level 8.5 mg/dL Total Bilirubin 0.5 mg/dL Aspartate Amino Transf (AST/SGOT) 22 U/L Alanine Aminotransferase (ALT/SGPT) 51 U/L Alkaline Phosphatase 71 U/L Total Protein 6.5 g/dL Albumin 3.9 g/dL Globulin 2.6 Albumin/Globulin Ratio 1.500 Lipase 47 U/L SARS-CoV-2 Antigen (Rapid) NEGATIVE Urine Collection Type UNKNOWN Urine Color YELLOW Urine Appearance CLEAR Urine Bilirubin NEGATIVE Urine Ketones NEGATIVE Urine Specific [place] 1.010 Urine pH 5.0 Urine Protein NEGATIVE Urine Urobilinogen 0.2 E.U./dL Urine Nitrate NEGATIVE Urine Leukocyte Esterase NEGATIVE Urine Glucose (Auto)(UA) NEGATIVE Urine Blood NEGATIVE Bedside Glucose 73 Test 01/12/22 20:58 01/13/22 05:15 Bedside Glucose 127 White Blood Count 5.8 10^3/uL Red Blood Count 4.02 10^6/uL Hemoglobin 13.3 g/dL Hematocrit 40.1 % Mean Corpuscular Volume 99.8 fL Mean Corpuscular Hemoglobin 33.1 pg Mean Corpuscular Hemoglobin Concent 33.2 g/dL Red Cell Distribution Width 13.6 % Platelet Count 203 10^3/uL Mean Platelet Volume 10.0 fL Neutrophils (%) (Auto) 59.4 % Lymphocytes (%) (Auto) 26.8 % Monocytes (%) (Auto) 10.5 % Neutrophils # (Auto) 3.4 10^3/uL Lymphocytes # (Auto) 1.55 10^3/uL1 Monocytes # (Auto) 0.6 10^3/uL Absolute Immature Granulocyte (auto 0.01 10^3 u/L Absolute Eosinophils (auto) 0.1 10^3/uL Immature Granulocytes % 0.20 % Eosinophils % 2.4 % Basophils % 0.7 % Basophils # 0.0 10^3/uL Sodium Level 144 mmol/L Potassium Level 3.4 mmol/L Chloride Level 111.0 mmol/L Carbon Dioxide Level 23.1 mmol/L Glucose Level 96 mg/dL Blood Urea Nitrogen 11 mg/dL Creatinine 1.21 mg/dL Calcium Level 8.4 mg/dL Anion Gap 13.3 Estimated GFR () 71.3 Est GFR (CKD-EPI)(Non-Afr [place]) 58.9 BUN/Creatinine Ratio 9.0 Current Medications Medications (Trade) Dose Ordered Sig/Timothy PRN Reason Start Time Stop Time Status Last Admin Acetaminophen (Tylenol) 1,000 mg Q6H PRN PAIN 1 - 3 01/12/22 11:30 02/11/22 11:29 Allopurinol (Zyloprim) 300 mg DAILY 01/13/22 09:00 02/12/22 08:59 01/13/22 09:48 Atorvastatin Calcium (Lipitor) 40 mg HS 01/12/22 21:00 02/11/22 20:59 01/12/22 21:16 Dextrose 1,000 ml @ 100 mls/hr Q10H PRN HYPOGLYCEMIA 01/12/22 12:00 02/11/22 11:59 Dextrose (Dextrose 50%-Water Syringe) 25 ml PRN PRN HYPOGLYCEMIA 01/12/22 12:00 02/11/22 11:59 Insulin Glargine (Lantus) 10 unit HS 01/12/22 21:00 02/11/22 20:59 01/12/22 21:15 Insulin Human Lispro (Humalog) 0-140 0 Units 141-200... ACHS 01/12/22 17:30 02/11/22 17:29 Metoprolol Tartrate (Lopressor) 50 mg BID 01/12/22 21:00 02/11/22 20:59 01/12/22 21:16 Ondansetron HCl (Zofran) 4 mg Q4H PRN NAUSEA / VOMITING 01/12/22 11:30 02/11/22 11:29 Pantoprazole Sodium (Protonix) 40 mg DAILY 01/13/22 09:00 02/12/22 08:59 01/13/22 09:49 Rivaroxaban (Xarelto) 20 mg DAILY 01/11/22 12:00 02/10/22 11:59 01/13/22 09:49 LEVEL 1 SEPSIS INFECTION CRITE: None/Not assessed LEVEL 2-SIRS (LIST ALL THAT AP: None/Not assessed Cardiovascular Evidence: Not Assessed or None Hematologic Evidence: None/Not assessed Hepatic Evidence: None/Not assessed Metabolic Evidence: None/Not assessed Neurological Evidence: None/Not assessed Respiratory Evidence: None/Not assessed Renal Evidence: None/Not assessed O2 Sat by Pulse Oximetry: 100 Oxygen Flow Rate: 0.00 ARUNA GARSIA MD Jan 14, 2022 13:22
== END 2022-01-14 13:54 | disposition home or self-care (01) ==
LOC: ER 07:55 → MS 09:38 → EDPENDDISTM 01-14 13:21
PROVIDERS: ADMIT Internal Medicine; ATTEND Internal Medicine
DX: K52.9 Noninfective gastroenteritis and colitis, unspecified (principal); Z20.822 Contact with and (suspected) exposure to COVID-19; N17.9 Acute kidney failure, unspecified; E86.0 Dehydration; E11.9 Type 2 diabetes mellitus without complications; I48.91 Unspecified atrial fibrillation; I10 Essential (primary) hypertension; E78.00 Pure hypercholesterolemia, unspecified; Z86.79 Personal history of other diseases of the circulatory system; Z79.899 Other long term (current) drug therapy
CPT/HCPCS: 96360; 96361; 99284; 81003; 87426; 80053 ×2; 85025 ×2; 82948 ×3; 36415 ×3; 83690; 93005; 80048; 85027; J7030; J7120 ×3; G0378 ×2